=== PATIENT | female | born 1980 | race Caucasian/White ===

== ENCOUNTER 2016-08-25 13:45 | Emergency (ER) | payer OTHER ==
[~2016-08-25 13:45] MED LIST: BACTRIM DS TABL1 TAB PO; CILOXAN5 ML OP; CIPRO PO; DESYREL50 M1 PO; DIFLUCAN PO; DIFLUCAN200 MG PO; DOXYCYCLINE HY100 M1 PO; FLAGYL PO; FLEXERIL PO; LORTAB 7.5-5001 TAB PO; MOBIC PO; NO MEDICATIONS; NORCO 7.5/325 T1 TAB PO; PERCOCET 5-3251 TAB PO; PERCOCET 5/321 UDTAB PO; PHENERGAN PO; VIBRAMYCIN100 M1 PO; VICODIN 5/500 T1 TAB PO; VICODIN PO; [UNRECOGNIZED DRUG - REMARK]
[2016-08-25 14:02] LABS: MICRO INDICATED? YES; URINE APPEARANCE CLEAR; URINE BILIRUBIN NEG (NEG); URINE BLOOD NEG (NEG); URINE COLOR YELLOW; URINE GLUCOSE NEG (NORM); URINE KETONE NEG (NEG); URINE LEUKOCYTE ESTERASE 1+ (NEG); URINE NITRATE NEG (NEG); URINE PH 8.5 (5-8); URINE PROTEIN 1+ (NEG); URINE SOURCE CLEAN CATCH; URINE SPECIFIC GRAVITY 1.015 (1.003-1.035); URINE UROBILINOGEN 0.2 MG/DL (NORM)
[2016-08-25 14:04] LABS: CULTURE INDICATED? YES; URINE BACTERIA 2+ (NEG); URINE MUCUS PRESENT; URINE SQUAMOUS EPITHELIAL CELL FEW /[HPF]; URINE WBC 25-50 /[HPF] (0-5)
[2016-08-28 08:24] LABS: CHLAMYDIA TRACH Not Detected (Not Detected); N GONOR Not Detected (Not Detected)
== END 2016-08-25 15:30 | disposition home or self-care (01) ==
LOC: SED 13:45
PROVIDERS: Nurse Practitioner
DX: N39.0 Urinary tract infection, site not specified (principal); Z20.2 Contact with and (suspected) exposure to infections with a predominantly sexual mode of transmission; I10 Essential (primary) hypertension; F17.210 Nicotine dependence, cigarettes, uncomplicated; Z98.51 Tubal ligation status; Z90.710 Acquired absence of both cervix and uterus; Z88.2 Allergy status to sulfonamides; Z88.5 Allergy status to narcotic agent
CPT/HCPCS: 81003; 87086; 87088; 87186; 87210; 87491; 87591; 87808; 87905; 96372; 99284; J0696